=== PATIENT | female | born 1980 | race Hispanic/Latino ===

== ENCOUNTER 2018-02-14 06:25 | Observation (INO) | payer OTHER ==
[2018-02-13 13:53] VITALS: BP 135/72
[2018-02-13 13:59] LABS: BASOPHILS % (AUTO) 0.9 % (0.0-5.0); EOSINOPHILS % (AUTO) 2.3 % (0.0-8.0); HEMATOCRIT 36.4 % (36-48); LYMPHOCYTES % (AUTO) 28.8 % (21.0-51.0); MEAN CORPUSCULAR HEMOGLOBIN 26.9 pg (27.0-33.0); MEAN CORPUSCULAR HGB CONC 33.4 g/dL (32.0-36.0); MEAN CORPUSCULAR VOLUME 80.4 fL (79-99); MONOCYTES % (AUTO) 4.3 % (3.0-13.0); NEUTROPHILS % (AUTO) 63.7 % (40.0-77.0); PLATELET COUNT (AUTO) 215 K/uL (130-400); RED BLOOD CELL COUNT(AUTO) 4.52 MIL/uL (4.00-5.50); RED CELL DISTRIBUTION WIDTH 17.3 % (11.0-15.5); WHITE BLOOD COUNT (AUTO) 9.4 K/uL (4.8-10.8)
[~2018-02-14] VITALS: Ht 160 cm; Wt 126.1 kg
[2018-02-14] VITALS (21 sets, daily range): BP systolic 123–171; BP diastolic 73–100
[~2018-02-14 06:25] MED LIST: CETI-101 PO
[2018-02-14] MEDS ORDERED: LACTATED RINGERS 1000ML 1,000 ML IV ONE (07:45)
[2018-02-14] MEDS ORDERED: CEFAZOLIN SODIUM 1 GM VIAL ONE (07:46)
[2018-02-14] MEDS ORDERED: ALBU0.63 IH (08:07)
[2018-02-14] MEDS ORDERED: NORG1TAB5 PO (08:08)
[2018-02-14] MEDS ORDERED: FERS325 PO (08:09)
[2018-02-14] MEDS ORDERED: ONDANSETRON HCL MDV 20ML 2 MG/ML VIAL ONE (08:17)
[2018-02-14] MEDS ORDERED: GLYCOPYRROLATE 0.2 MG/ML 5 ML VIAL ONE (08:17)
[2018-02-14] MEDS ORDERED: NEOSTIGMINE METHYLSULFATE 1MG/ML IV ONE (08:17)
[2018-02-14] MEDS ORDERED: LIDOCAINE PF 2% 5ML ABBOJECT ONE (08:17)
[2018-02-14] MEDS ORDERED: LIDOCAINE HCL-MPF 1% 5ML AMP IJ ONE (08:17)
[2018-02-14] MEDS ORDERED: LIDOCAINE HCL 2% JELLY 5 ML ONE (08:18)
[2018-02-14] MEDS ORDERED: ROCURONIUM BROMIDE 10MG/1ML 5ML VL ONE (08:18)
[2018-02-14] MEDS ORDERED: FENTANYL CITRATE PF 50 MCG/1 ML 2ML VIAL ONE (08:18)
[2018-02-14] MEDS ORDERED: DEXAMETHASONE SOD PHOSPHATE 10MG/ML 1ML VIAL ONE (08:18)
[2018-02-14] MEDS ORDERED: PROPOFOL 10 MG/ML 20ML VIAL IV ONE (08:18)
[2018-02-14] MEDS ORDERED: MIDAZOLAM HCL 1 MG/ML 2ML VIAL ONE (08:18)
[2018-02-14] MEDS ORDERED: CEFAZOLIN 3GM /D5W 100ML 100 ML IV ONE (09:00)
[2018-02-14] MEDS ORDERED: FENTANYL CITRATE PF 50 MCG/1 ML 5ML AMP IV ONE (09:19)
[2018-02-14] MEDS ORDERED: MORPHINE SULFATE 4 MG/1ML SYG ONE (12:04)
[2018-02-14] MEDS ORDERED: MEPERIDINE-PF 25 MG/ML SYG ONE ×2 (12:14→12:24)
[2018-02-14] MEDS ORDERED: IPRATROPIUM/ALBUTEROL SULFATE 3 ML SOLUTION IH ONE (12:27)
[2018-02-14] MEDS ORDERED: KETOROLAC TROMETHAMINE 30MG/ML ONE (12:53)
[2018-02-14] MEDS ORDERED: PROMETHAZINE HCL 25 MG/ML 1ML AMPULE IM PRN (13:30)
[2018-02-14] MEDS ORDERED: SIMETHICONE 80 MG TAB.CHEW PO PRN (13:30)
[2018-02-14] MEDS ORDERED: ACETAMINOPHEN-CODEINE 300/30MG TAB PO PRN (13:30)
[2018-02-14] MEDS ORDERED: BISACODYL 10 MG SUPP.RECT RC PRN (13:30)
[2018-02-14] MEDS ORDERED: DOCUSATE SODIUM 100 MG CAP PO PRN (13:30)
[2018-02-14] MEDS: PROMETHAZINE HCL 25 MG/ML 1ML AMPULE IM PRN ×3 (14:01→23:27)
[2018-02-14] MEDS: MEPERIDINE-PF 75 MG/ML SYG IM PRN ×3 (14:01→23:30)
[2018-02-14] MEDS: DEXTROSE 5 %-0.45 % NACL 1,000 ML IV PRN ×2 (14:01→23:27)
[2018-02-15 03:47] VITALS: BP 134/75
[2018-02-15] MEDS: PROMETHAZINE HCL 25 MG/ML 1ML AMPULE IM PRN (05:12)
[2018-02-15] MEDS: MEPERIDINE-PF 75 MG/ML SYG IM PRN (05:13)
[2018-02-15 05:32] LABS: HEMATOCRIT 36.1 % (36-48); MEAN CORPUSCULAR HEMOGLOBIN 26.6 pg (27.0-33.0); MEAN CORPUSCULAR HGB CONC 32.8 g/dL (32.0-36.0); MEAN CORPUSCULAR VOLUME 81.1 fL (79-99); PLATELET COUNT (AUTO) 229 K/uL (130-400); RED BLOOD CELL COUNT(AUTO) 4.45 MIL/uL (4.00-5.50); RED CELL DISTRIBUTION WIDTH 17.6 % (11.0-15.5); WHITE BLOOD COUNT (AUTO) 13.9 K/uL (4.8-10.8)
[2018-02-15 07:53] VITALS: BP 142/80
[2018-02-15] MEDS: IBUPROFEN 600 MG TABLET PO PRN ×2 (09:17→15:13)
[2018-02-15 11:33] VITALS: BP 133/86
[2018-02-15 15:49] VITALS: BP_SYST 138; BP_SYST 139; BP_DIAS 72; BP_DIAS 82
== END 2018-02-15 17:00 | disposition home or self-care (01) ==
LOC: DAH 06:25 → WSH 06:26 → DAH 06:26 → WSH 13:15
PROVIDERS: ADMIT Obstetrics & Gynecology; ATTEND Obstetrics & Gynecology
DX: N92.1 Excessive and frequent menstruation with irregular cycle (principal); D25.9 Leiomyoma of uterus, unspecified; R10.2 Pelvic and perineal pain; E66.01 Morbid (severe) obesity due to excess calories; K66.8 Other specified disorders of peritoneum; N73.6 Female pelvic peritoneal adhesions (postinfective)
CPT/HCPCS: 36415 ×2; 58552; 85025; 85027; 86850; 86900; 86901; 88307; 94640; 96372 ×2; A4215; A4218; A4344; A4351; A4510; A4600; A4649 ×4; C1769 ×2; G0378 ×35; J0690 ×2; J1100; J1885; J2001; J2175 ×6; J2250; J2270; J2550 ×4; J2704; J2710; J3010 ×2; J3490 ×3; J7120 ×2